=== PATIENT | male | born 1990 | race African-American/Black ===

== ENCOUNTER 2016-10-02 20:25 | Emergency (ER) | payer OTHER ==
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
[2016-10-02] MEDS ORDERED: IBUPROFEN 800 MG TABLET PO ONE (22:13)
[2016-10-02] MEDS ORDERED: CYCLOBENZAPRINE HCL 10 MG TABLET PO ONE (23:32)
[2016-10-02 23:46] VITALS: BP 145/99
== END 2016-10-02 23:46 | disposition home or self-care (01) ==
LOC: ER 20:25
DX: M54.5 Low back pain (principal); M54.2 Cervicalgia; V87.7XXA Person injured in collision between other specified motor vehicles (traffic), initial encounter
CPT/HCPCS: 72110; 99284